=== PATIENT | male | born 1960 | race Caucasian/White ===

== ENCOUNTER 2021-03-29 12:56 | Outpatient (CLI) | payer OTHER ==
[2021-03-29 14:16] LABS: Hemoglobin 14.3 g/dL (13.5-17.5); Mean Corpuscular HGB CONC 34.3 g/dL (32.0-36.0); Mean Corpuscular Volume 87.4 fl (81.2-95.1); Mean Platelet Volume 8.5 fl (7.4-10.4); Platelet Count 366 10x3/uL (150-450); Red Blood Cell (RBC) Count 4.77 10x6/uL (4.32-5.72); White Blood Cell (WBC) Count 12.5 10x3/uL (3.5-10.5)
[2021-03-29 14:18] LABS: Anion Gap 13 mmol/L (10-20); BUN (Urea Nitrogen) 11 mg/dL (8.4-25.7); Calc. Creatinine Clearance 0 mL/min (70-130); Calcium 10.2 mg/dL (7.8-10.44); Carbon Dioxide 27 mmol/L (23-31); Chloride 101 mmol/L (98-107); Glucose 140 mg/dL (80-115); Sodium 136 mmol/L (136-145)
[2021-03-30 07:42] LABS: SARS-CoV-2 PCR by NAA Not Detected (NotDetected)
== END 2021-03-29 12:57 | disposition home or self-care (01) ==
LOC: CSHLAB 12:56
PROVIDERS: ATTEND Surgery
DX: Z01.812 Encounter for preprocedural laboratory examination (principal); Z20.822 Contact with and (suspected) exposure to COVID-19
CPT/HCPCS: 80048; 85027; U0003; U0005

== ENCOUNTER 2021-03-31 05:55 | Day surgery (SDC) | payer OTHER ==
[2021-03-29 15:54] VITALS: BMI 26.8
[2021-03-31] MEDS ORDERED: Lidocaine 1% MPF 2 ML VIAL ONE (06:50)
[2021-03-31] MEDS ORDERED: Fentanyl 100 MCG/2 ML VIAL ONE (06:53)
[2021-03-31] MEDS ORDERED: PROPOFOL 20 ML ONE (06:53)
[2021-03-31] MEDS ORDERED: Midazolam HCl 2 mg/2 ml Vial ONE (06:53)
[2021-03-31] MEDS ORDERED: Lidocaine 1% PF 5 ML VIAL ONE (06:54)
[2021-03-31] MEDS ORDERED: Dexamethasone 20 MG/5 ML VIAL ONE (06:54)
[2021-03-31] MEDS ORDERED: Ondansetron PF 4 MG/2 ML Vial ONE (06:54)
[2021-03-31] MEDS ORDERED: Bupivacaine 0.25% HCL 30 ML VIAL ONE (06:55)
[2021-03-31] MEDS ORDERED: EPINEPHrine 1 MG/ML AMP ONE (06:55)
[2021-03-31] MEDS ORDERED: HYDROcodone/Acetaminophen 5/325 mg Tablet PO PRN (08:14)
== END 2021-03-31 08:50 | disposition home or self-care (01) ==
LOC: CSHSDC 05:55
PROVIDERS: ATTEND Surgery
DX: C79.31 Secondary malignant neoplasm of brain (principal)
CPT/HCPCS: 76000; C1788; J0171; J0690; J1100; J1642; J2250; J2405; J2704; J3010; S0020